=== PATIENT | male | born 1985 | race Caucasian/White ===

== ENCOUNTER 2021-12-13 17:37 | Outpatient (CLI) | payer OTHER ==
--- NOTE | 2021-12-14 10:01 | XRAY Report ---
PROCEDURE: Lumbar Spine 2 View INDICATIONS: LOW BACK PAIN TECHNIQUE: 2 views of the lumbar spine were acquired. COMPARISON: None. FINDINGS: Bones: 5 [id number] vertebrae are present. There is normal bony alignment. No vertebral body compression fractures. No suspicious bony lesions. Soft tissues: Overlying bowel gas pattern is normal. No suspicious soft tissue calcifications. IMPRESSION: Unremarkable radiographic examination of lumbar spine. Reviewed by: Alexis Hale MD on 12/14/2021 10:00 AM PDT Approved by: Alexis Hale MD on 12/14/2021 10:00 AM PDT Station ID: [id number]
== END 2021-12-13 17:38 | disposition home or self-care (01) ==
LOC: DI 17:37
PROVIDERS: ATTEND Student in an Organized Health Care Education/Training Program
DX: M54.50 Low back pain, unspecified (principal)

== ENCOUNTER 2022-08-18 09:20 | Outpatient (CLI) | payer OTHER ==
--- NOTE | 2022-08-18 12:28 | CT Report ---
PROCEDURE: CT brain with and without contrast INDICATIONS: FOFANA'S PALSY CONTRAST: 100ml Omnipaque 300 TECHNIQUE: 4.5 mm thick angled axial sections acquired from the foramen magnum to the vertex before and after th e administration of intravenous contrast. For radiation dose reduction, the following was used: aut omated exposure control, adjustment of mA and/or kV according to patient size. COMPARISON: None FINDINGS: Image quality: Excellent. CSF Spaces: Basal cisterns are patent. No extra-axial fluid collections. Ventricles are normal in size and shape. Brain: No midline shift. No intracranial bleeds or masses. No abnormal intracranial enhancement. Ya-white interface appears normal. Skull and face: Calvarium and visualized facial bones appear intact, without suspicious lesions. Sinuses: Prior sinus surgery noted. Mucosal thickening present in the left frontal, right maxillary a ntrum and ethmoid sinuses IMPRESSION: Frontal, ethmoid and maxillary mucosal sinus disease Unremarkable CT brain with and without contrast Reviewed by: Jabari Graham MD on 08/18/2022 11:27 AM [facility] Approved by: Jabari Graham MD on 08/18/2022 11:27 AM [facility] Station ID: [id number]
== END 2022-08-18 09:21 | disposition home or self-care (01) ==
LOC: DI 09:20
PROVIDERS: ATTEND Student in an Organized Health Care Education/Training Program
DX: G51.0 Bell's palsy (principal); J32.2 Chronic ethmoidal sinusitis; J32.0 Chronic maxillary sinusitis
CPT/HCPCS: 70460; Q9967

== ENCOUNTER 2023-01-16 08:35 | Outpatient (CLI) | payer OTHER ==
--- NOTE | 2023-01-16 16:37 | XRAY Report ---
PROCEDURE: Hip w/Pelvis 2-3V RT INDICATIONS: HIP PAIN TECHNIQUE: AP pelvis with lateral view(s) of the hip(s). COMPARISON: None. FINDINGS: Bones: No fractures or dislocations. No suspicious bony lesions. Mild bilateral hip joint space n arrowing and periarticular osteophyte formation. Soft tissues: No suspicious soft tissue calcifications or masses. IMPRESSION: Bilateral hip osteoarthritis. No acute fracture. No osseous lesion. If symptoms and/or clinical suspi cion for pathology continue, further assessment with repeat plain films, or advanced imaging (e.g., C T, MRI, or bone scan) is recommended for further assessment. Reviewed by: Emerald Mckeon MD on 01/16/2023 4:36 PM PST Approved by: Emerald Mckeon MD on 01/16/2023 4:36 PM PST Station ID: [id number]
--- NOTE | 2023-01-16 16:37 | XRAY Report ---
PROCEDURE: Chest 2 View X-Ray INDICATIONS: RIGHT HIP PAIN, CHEST PAIN TECHNIQUE: 2 views of the chest were acquired. COMPARISON: None. FINDINGS: Surgical changes and devices: None. Lungs and pleura: No pleural effusions or pneumothorax. Lungs are clear. Mediastinum: Mediastinal contours appear normal. Heart size is normal. Bones and chest wall: No suspicious bony lesions. Overlying soft tissues appear unremarkable. IMPRESSION: No acute process. Reviewed by: Emerald Mckeon MD on 01/16/2023 4:36 PM [facility] Approved by: Emerald Mckeon MD on 01/16/2023 4:36 PM [facility] Station ID: [id number]
== END 2023-01-16 08:36 | disposition home or self-care (01) ==
LOC: DI 08:35
PROVIDERS: ATTEND Physician Assistant
DX: M16.0 Bilateral primary osteoarthritis of hip (principal); R07.89 Other chest pain